=== PATIENT | male | born 2000 | race African-American/Black ===

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

== ENCOUNTER 2020-04-24 22:43 | Emergency (ER) | payer SELFPAY ==
[~2020-04-24] VITALS: Ht 170.2 cm; Wt 75.3 kg
[2020-04-24 22:59] VITALS: Ht 170.2 cm; Wt 75.3 kg
[2020-04-25 01:38] VITALS: BP 111/87
== END 2020-04-25 01:38 | disposition home or self-care (01) ==
LOC: ED 22:43
DX: J03.90 Acute tonsillitis, unspecified (principal); Z88.6 Allergy status to analgesic agent